=== PATIENT | female | born 1955 | race Caucasian/White ===

== ENCOUNTER → 2022-11-23 | Day surgery (SDC) | payer MEDICARE, OTHER ==
[~2022-11-23] MED LIST: Flumazenil 0.1 MG/ML 10 ML MDV ONE; Lactated Ringers 1,000 ML IV SCH; Lidocaine 2% 20 ML MDV ONE; Midazolam 1 MG/ML 2 ML SDV ONE; Propofol 200 MG/20 ML SDV ONE; fentaNYL 50 MCG/ML SDV ONE
== END ==
LOC: CC.SDS 08:04
PROVIDERS: ATTEND Family Medicine
DX: K29.50 Unspecified chronic gastritis without bleeding (principal); K44.9 Diaphragmatic hernia without obstruction or gangrene; E78.5 Hyperlipidemia, unspecified; E55.9 Vitamin D deficiency, unspecified; K21.9 Gastro-esophageal reflux disease without esophagitis; M19.071 Primary osteoarthritis, right ankle and foot; M81.0 Age-related osteoporosis without current pathological fracture; F17.210 Nicotine dependence, cigarettes, uncomplicated; Z98.84 Bariatric surgery status; Z79.899 Other long term (current) drug therapy
CPT/HCPCS: 00731; 43239; 87081; 88305; J2250; J2704; J3010; J7120; J3490